=== PATIENT | female | born 1935 | race Caucasian/White ===

== ENCOUNTER → 2018-06-21 10:56 | Outpatient (CLI) | payer MEDICARE, SELFPAY ==
--- NOTE | 2018-06-21 | DI.MG.S_ITS ---
BILATERAL DIGITAL SCREENING MAMMOGRAM 3D/2D WITH CAD: 06/21/2018 CLINICAL: Routine screening. Family history of breast cancer. Comparison is made to exams dated: 05/02/2017 mammogram, 03/23/2016 mammogram, and 02/28/2015 mammogram - [facility]. The tissue of both breasts is heterogeneously dense. This may lower the sensitivity of mammography. Current study was also evaluated with a Computer Aided Detection (CAD) system. There is a focal asymmetry in the right breast at 6 o'clock anterior depth. No other significant masses, calcifications, or other findings are seen in either breast. IMPRESSION: INCOMPLETE: NEEDS ADDITIONAL IMAGING EVALUATION The focal asymmetry in the right breast is indeterminate. Additional views with possible ultrasound are recommended. This exam was interpreted at Station ID: [id number]. NOTE: For mammograms, a report in lay terms will be sent to the patient. Approximately 15% of breast malignancies will not be visualized mammographically. In the management of a palpable breast mass, a negative mammogram must not discourage biopsy of a clinically suspicious lesion. Electronically Signed By: Patience nelson/[email or web address]:06/23/2018 13:12:28 letter sent: Additional Imaging Needed ACR BI-RADS Category 0: Incomplete 3340F
== END ==
PROVIDERS: PCP Physician Assistant; Visit Provider Physician Assistant
DX: Z12.31 Encounter for screening mammogram for malignant neoplasm of breast (principal); Z80.3 Family history of malignant neoplasm of breast
CPT/HCPCS: 77063; 77067

== ENCOUNTER → 2019-06-22 11:40 | Outpatient (CLI) | payer MEDICARE, SELFPAY ==
--- NOTE | 2019-06-22 | DI.MG.S_ITS ---
BILATERAL DIGITAL SCREENING MAMMOGRAM 3D/2D WITH CAD: 06/22/2019 CLINICAL: Routine screening. Family history of breast cancer. Comparison is made to exams dated: 07/17/2018 ultrasound biopsy - [facility], 06/21/2018 mammogram, 05/02/2017 mammogram, and 03/23/2016 mammogram - Loc[facility]. The tissue of both breasts is heterogeneously dense. This may lower the sensitivity of mammography. Current study was also evaluated with a Computer Aided Detection (CAD) system. There is a biopsy clip in the right breast. No significant masses, calcifications, or other findings are seen in either breast. There has been no significant interval change. IMPRESSION: NEGATIVE There is no mammographic evidence of malignancy. A 1 year screening mammogram is recommended. This exam was interpreted at Station ID: [id number]. NOTE: For mammograms, a report in lay terms will be sent to the patient. Approximately 15% of breast malignancies will not be visualized mammographically. In the management of a palpable breast mass, a negative mammogram must not discourage biopsy of a clinically suspicious lesion. Electronically Signed By: Dino de león/danitza:06/22/2019 13:25:38 letter sent: Normal Exam ACR BI-RADS Category 1: Negative 3341F
== END ==
PROVIDERS: PCP Physician Assistant; Visit Provider Internal Medicine
DX: Z12.31 Encounter for screening mammogram for malignant neoplasm of breast (principal); Z80.3 Family history of malignant neoplasm of breast
CPT/HCPCS: 77063; 77067

== ENCOUNTER → 2020-02-26 13:02 | Outpatient (CLI) | payer OTHER, SELFPAY ==
[2020-02-26 14:04] LABS: Appearance Urine UA CLEAR; Bilirubin Urine UA NEGATIVE (NEGATIVE); Color Urine UA YELLOW; Glucose Urine UA NEGATIVE (Negative); Ketones Urine UA NEGATIVE (NEGATIVE); Leukocyte Esterase Urine UA NEGATIVE (NEGATIVE); Nitrite Urine UA NEGATIVE (Negative); Occult Blood Urine UA 1+ (Negative); Protein Urine UA NEGATIVE (Negative); Urobilinogen Urine UA 0.2 E.U./dL (0.2)
[2020-02-26 14:18] LABS: pH Urine UA 5.5 (4.5-8.0)
[2020-02-26 14:21] LABS: Bacteria Urine Occasional (0-1); Culture Indicated Urine Cult Not Indicated; RBC Urine 0-1/HPF (0-5/HPF); WBC Urine 0-1/HPF (0-5/HPF)
[2020-02-26 14:28] LABS: Add Manual Diff / Slide Review NO; Basophils Absolute Auto 100 /uL (0-100); Basophils Percent Auto 1.1 % (0-2); Eosinophils Absolute Auto 100 /uL (0-450); Eosinophils Percent Auto 0.9 % (2-4); Hematocrit 37.6 % (36-46); Hemoglobin 13.1 g/dL (12.0-16.0); Lymphocytes Absolute Auto 1400 /uL (1100-4500); Lymphocytes Percent Auto 23.3 % (25-40); Mean Corpuscular HGB Conc 34.9 % (30-36); Mean Corpuscular Hemoglobin 33.2 PG (26-34); Mean Corpuscular Volume 95.2 fL (80-100); Monocytes Absolute Auto 500 /uL (0-900); Monocytes Percent Auto 8.3 % (3-14); Neutrophils Absolute Auto 4000 /uL (1500-7000); Neutrophils Percent Auto 66.4 % (50-75); Platelet Count 153 X10^3/uL (150-400); Red Blood Cell Count 3.95 X10^6/uL (4.0-5.2); Red Cell Distribution Width 13.5 % (11.6-14.8)
[2020-02-26 14:29] LABS: Alanine Aminotransferase 25 IU/L (<35); Albumin 4.3 g/dL (3.5-5.0); Albumin Globulin Ratio 1.5 (1.0-2.8); Alkaline Phosphatase 59 U/L (38-126); Aspartate Aminotransferase 45 IU/L (14-36); BUN Creatinine Ratio 25.8 (6-22); Bilirubin Total 0.8 mg/dL (0.2-1.3); Blood Urea Nitrogen 24 mg/dL (7-17); Calcium 9.8 mg/dL (8.4-10.2); Carbon Dioxide 27 mmol/L (22-32); Chloride 103 mmol/L (98-107); Estimated Glomerular Filt Rate 57.6 mL/min (>60); Globulin 2.9 g/dL (1.7-4.1); Glucose 93 mg/dL (80-110); HEMOLYSIS 38 (0-50); Potassium 4.5 mmol/L (3.4-5.1); Sodium 137 mmol/L (137-145); Total Protein 7.2 g/dL (6.3-8.2)
[2020-02-26 14:58] LABS: TSH w/ Reflex to FT4 1.29 uIU/mL (0.47-4.68)
[2020-02-26 16:38] LABS: Vitamin D 25 Hydroxy (D3) 39.1 ng/mL (30.0-100.0)
== END ==
PROVIDERS: PCP Physician Assistant; Referring Provider Internal Medicine; Visit Provider Internal Medicine
DX: Z13.820 Encounter for screening for osteoporosis (principal); N18.3 Chronic kidney disease, stage 3 (moderate); E03.9 Hypothyroidism, unspecified; E55.9 Vitamin D deficiency, unspecified; K62.3 Rectal prolapse; R73.9 Hyperglycemia, unspecified
CPT/HCPCS: 36415; 80053; 81001; 82306; 84443; 85025

== ENCOUNTER → 2020-04-01 12:34 | Outpatient (CLI) | payer OTHER, SELFPAY | PROVIDERS: PCP Internal Medicine; Referring Provider Internal Medicine; Visit Provider Internal Medicine | DX: Z13.820 Encounter for screening for osteoporosis (principal); M85.852 Other specified disorders of bone density and structure, left thigh; Z78.0 Asymptomatic menopausal state; Z82.62 Family history of osteoporosis | CPT/HCPCS: 77080 ==

== ENCOUNTER → 2020-05-23 11:14 | Outpatient (CLI) | payer OTHER, SELFPAY ==
[2020-05-23 12:12] LABS: Alanine Aminotransferase 28 IU/L (<35); Aspartate Aminotransferase 39 IU/L (14-36); Gamma Glutamyl Transpeptidase 19 U/L (12-43)
== END ==
PROVIDERS: PCP Internal Medicine; Referring Provider Internal Medicine; Visit Provider Internal Medicine
DX: R74.0 Nonspecific elevation of levels of transaminase and lactic acid dehydrogenase [LDH] (principal)
CPT/HCPCS: 36415; 82977; 84450; 84460

== ENCOUNTER → 2020-06-23 11:04 | Outpatient (CLI) | payer OTHER, SELFPAY ==
--- NOTE | 2020-06-23 | DI.MG.S_ITS ---
BILATERAL DIGITAL SCREENING MAMMOGRAM 3D/2D WITH CAD: 06/23/2020 CLINICAL: Routine screening. Family history of breast cancer. Comparison is made to exams dated: 06/22/2019 mammogram, 06/21/2018 mammogram, and 05/02/2017 mammogram - [facility]. The tissue of both breasts is heterogeneously dense. This may lower the sensitivity of mammography. Current study was also evaluated with a Computer Aided Detection (CAD) system. There is a biopsy clip in the right breast. No significant masses, calcifications, or other findings are seen in either breast. There has been no significant interval change. IMPRESSION: NEGATIVE There is no mammographic evidence of malignancy. A 1 year screening mammogram is recommended. This exam was interpreted at Station ID: [id number]. NOTE: For mammograms, a report in lay terms will be sent to the patient. Approximately 15% of breast malignancies will not be visualized mammographically. In the management of a palpable breast mass, a negative mammogram must not discourage biopsy of a clinically suspicious lesion. Electronically Signed By: Ha winter/danitza:06/23/2020 17:08:42 letter sent: Normal Exam ACR BI-RADS Category 1: Negative 3341F
== END ==
PROVIDERS: PCP Internal Medicine; Referring Provider Internal Medicine; Visit Provider Internal Medicine
DX: Z12.31 Encounter for screening mammogram for malignant neoplasm of breast (principal); Z80.3 Family history of malignant neoplasm of breast
CPT/HCPCS: 77063; 77067

== ENCOUNTER → 2021-06-24 10:45 | Outpatient (CLI) | payer MEDICARE, SELFPAY ==
--- NOTE | 2021-06-24 | DI.MG.S_ITS ---
BILATERAL DIGITAL SCREENING MAMMOGRAM 3D/2D WITH CAD: 06/24/2021 CLINICAL: Routine screening. Family history of breast cancer. Comparison is made to exams dated: 06/23/2020 mammogram, 06/22/2019 mammogram, 06/21/2018 mammogram, 02/28/2015 mammogram, 02/17/2014 mammogram, and 05/02/2017 mammogram - [facility]. The tissue of both breasts is heterogeneously dense. This may lower the sensitivity of mammography. Current study was also evaluated with a Computer Aided Detection (CAD) system. There is a biopsy clip in the right breast. No significant masses, calcifications, or other findings are seen in either breast. There has been no significant interval change. IMPRESSION: NEGATIVE There is no mammographic evidence of malignancy. A 1 year screening mammogram is recommended. This exam was interpreted at Station ID: [id number]. NOTE: For mammograms, a report in lay terms will be sent to the patient. Approximately 15% of breast malignancies will not be visualized mammographically. In the management of a palpable breast mass, a negative mammogram must not discourage biopsy of a clinically suspicious lesion. Electronically Signed By: Dino de león/danitza:06/26/2021 07:55:07 letter sent: Normal Exam ACR BI-RADS Category 1: Negative 3341F
== END ==
PROVIDERS: PCP Internal Medicine; Referring Provider Internal Medicine; Visit Provider Internal Medicine
DX: Z12.31 Encounter for screening mammogram for malignant neoplasm of breast (principal); Z80.3 Family history of malignant neoplasm of breast
CPT/HCPCS: 77063; 77067

== ENCOUNTER → 2022-06-25 10:05 | Outpatient (CLI) | payer OTHER, SELFPAY ==
--- NOTE | 2022-06-25 | DI.MG.S_ITS ---
BILATERAL DIGITAL SCREENING MAMMOGRAM 3D/2D WITH CAD: 06/25/2022 CLINICAL: Routine screening. Family history of breast cancer. Comparison is made to exams dated: 06/24/2021 mammogram, 06/23/2020 mammogram, 06/22/2019 mammogram, 06/21/2018 mammogram, and 05/02/2017 mammogram - [facility]. Both breasts are heterogeneously dense, which may obscure small masses (category c / 51-75% glandular tissue). Current study was also evaluated with a Computer Aided Detection (CAD) system. There is a biopsy clip in the right breast. No significant masses, calcifications, or other findings are seen in either breast. There has been no significant interval change. IMPRESSION: NEGATIVE There is no mammographic evidence of malignancy. A 1 year screening mammogram is recommended. This exam was interpreted at Station ID: [id number]. NOTE: For mammograms, a report in lay terms will be sent to the patient. Approximately 15% of breast malignancies will not be visualized mammographically. In the management of a palpable breast mass, a negative mammogram must not discourage biopsy of a clinically suspicious lesion. Electronically Signed By: Gary benoit/danitza:06/25/2022 11:49:48 letter sent: Normal Exam ACR BI-RADS Category 1: Negative 3341F
== END ==
PROVIDERS: PCP Student in an Organized Health Care Education/Training Program; Referring Provider Student in an Organized Health Care Education/Training Program; Visit Provider Student in an Organized Health Care Education/Training Program
DX: Z12.31 Encounter for screening mammogram for malignant neoplasm of breast (principal); Z80.3 Family history of malignant neoplasm of breast
CPT/HCPCS: 77063; 77067

== ENCOUNTER → 2023-02-25 14:19 | Outpatient (CLI) | payer MEDICARE, SELFPAY ==
[2023-02-25 14:47] LABS: Hematocrit 37.9 % (36-46); Hemoglobin 12.9 g/dL (12.0-16.0); Mean Corpuscular HGB Conc 34.1 % (30-36); Mean Corpuscular Hemoglobin 32.3 PG (26-34); Mean Corpuscular Volume 94.8 fL (80-100); Platelet Count 165 X10^3/uL (150-400); Red Cell Distribution Width 13.5 % (11.6-14.8); White Blood Cell Count 7.6 X10^3/uL (4.5-11.0)
[2023-02-25 15:04] LABS: Alanine Aminotransferase 31 IU/L (<35); Albumin 4.2 g/dL (3.5-5.0); Albumin Globulin Ratio 1.5 (1.0-2.8); Alkaline Phosphatase 52 U/L (38-126); Aspartate Aminotransferase 34 IU/L (14-36); BUN Creatinine Ratio 31.8 (6-22); Bilirubin Total 0.6 mg/dL (0.2-1.3); Blood Urea Nitrogen 35 mg/dL (7-17); Carbon Dioxide 32 mmol/L (22-32); Chloride 101 mmol/L (98-107); Cholesterol 225 mg/dL (140-199); Estimated Glomerular Filt Rate 49 mL/min (>60); Globulin 2.8 g/dL (1.7-4.1); Glucose 95 mg/dL (80-110); HDL Cholesterol 97 mg/dL (40-60); HEMOLYSIS < 15 (0-50); LDL Cholesterol Calculated 102 mg/dL (<100); Potassium 3.9 mmol/L (3.4-5.1); Sodium 139 mmol/L (137-145); Triglycerides 131 mg/dL (35-150)
[2023-02-25 15:08] LABS: Appearance Urine UA CLEAR; Bilirubin Urine UA NEGATIVE (NEGATIVE); Color Urine UA YELLOW; Glucose Urine UA NEGATIVE (Negative); Ketones Urine UA NEGATIVE (NEGATIVE); Leukocyte Esterase Urine UA 1+ (NEGATIVE); Nitrite Urine UA NEGATIVE (Negative); Occult Blood Urine UA 1+ (Negative); Protein Urine UA NEGATIVE (Negative); Urobilinogen Urine UA 0.2 E.U./dL (0.2)
[2023-02-25 15:20] LABS: Bacteria Urine Few (2-10); Culture Indicated Urine Specimen Cultured; RBC Urine 0-1/HPF (0-5/HPF); Squamous Epithelial Cell Urine 1-5 /HPF (0-5/HPF); WBC Urine 5-10/HPF (0-5/HPF)
[2023-02-25 15:32] LABS: TSH w/ Reflex to FT4 1.32 uIU/mL (0.47-4.68)
== END ==
PROVIDERS: PCP Internal Medicine; Referring Provider Internal Medicine; Visit Provider Internal Medicine
DX: E03.9 Hypothyroidism, unspecified (principal); E78.2 Mixed hyperlipidemia; N18.31 Chronic kidney disease, stage 3a; Z87.898 Personal history of other specified conditions
CPT/HCPCS: 36415; 80053; 80061; 81001; 84443; 85027; 87086

== ENCOUNTER 2023-05-06 09:30 | Outpatient (RCR) | payer MEDICARE, SELFPAY ==
--- NOTE | 2023-04-19 15:37 | PT.OIE ---
Current Diagnoses Mixed incontinence (04/19/23) Pelvic and perineal pain (04/19/23) Lower abdominal pain, unspecified (04/19/23) Flatulence (04/19/23) Unspecified urinary incontinence (04/19/23) Past Medical History (Last Updated 02/25/23 @ 13:53 by Michael Euceda MD) Acquired hypothyroidism Actinic keratosis Chicken pox GERD without esophagitis History of urinary incontinence Lost voice (~2017) Measles Mixed hyperlipidemia Osteopenia Scarlet fever (~1945) Stage 3a chronic kidney disease (CKD) Past Surgical History (Last Updated 02/24/23 @ 18:39 by Riana Liz) Anesthesia History of appendectomy (~1998) History of rectal surgery (~2018) Visit Care Team Role Provider Type Michael Euceda MD Attending Provider Physician Family Provider Primary Care Provider Referring Provider Specialty: Internal Medicine Address: [address] [place] [address] Email: [email or web address] Physical Therapy Initial Evaluation PT-OP-A Visit Information Start: 04/04/23 17:54 Freq: Status: Active Protocol: Document 04/19/23 10:37 LRN (Rec: 04/19/23 13:08 LRN [id number]) Out-Patient Physical Therapy Visit Information Visit Information Visit Type Initial Evaluation Visit Start Time 10:38 Visit Stop Time 11:24 Total Visit Minutes 46 Visit Number 1 Evaluation Information Evaluation Date 04/19/23 Precautions Precautions Rectal prolapse. PT-OP-B Current Condition Start: 04/04/23 17:54 Freq: Status: Active Protocol: Document 04/19/23 10:37 LRN (Rec: 04/19/23 13:08 LRN [id number]) Current Condition History of Current Condition Onset Date 2 months ago falling out feeling, 3 yrs wearing thick pad for protection. Current Complaints Leaks when heading to the bathroom , urinates frequently , falling out feel. History of Current Condition Urinary Incontinence, sometimes doesn't make it to the bathroom. Wore thin pad for the past 10 yrs, but in past 2-3 yrs now wears a thicker pad (one) daily. Since young has always had to go to the bathroom more often than most people. Now urinating every hour or every 2 hrs. Feels like her vagina is falling out with walking. Developmental History Developmental History Rectal surgery 06/2020 w/Dr. Valerio in [place] for rectal prolapse. Helped with having normal bowel movement. 2 childbirths, vaginal deliveries w/o complications. Treatment Goals Patient/Caregiver Goals Pt goal: Reduce or eliminate the feeling of PF falling out with walking. Eliminate urinary leakage with an urge. Pt agrees to HEP and PF education. Personal Factors Other Personal Factors That May Effect 88 year old female, s/p rectal Therapy/Recovery surgery for rectocele. Walks , plays golf, stretches in the morning. In winter yoga ex and does wgt lifting. Hurt L knee 2 weeks ago, landing on the knee with a tiny bit of knee pain. PT-OP-C Subjective Start: 04/04/23 17:54 Freq: Status: Active Protocol: Document 04/19/23 10:37 LRN (Rec: 04/19/23 13:08 LRN [id number]) Patient Questionnaires Pelvic Pain and Urgency/Frequency Patient Symptom Scale Pelvic Pain Score .12 PT-OP-I Pelvic Floor Start: 04/04/23 17:54 Freq: Status: Active Protocol: Document 04/19/23 10:37 LRN (Rec: 04/19/23 13:08 LRN [id number]) Pelvic Floor Assessment Urine Urinary Symptoms Urge Sensation,Falling Out Feeling/Heavy Leakage Size Small Leakage Cause Urge Other Leakage Causes Urinates 4 or more times during the night. Voiding Frequency every hour or 2 Nocturia 4+ Pads Used In 24 Hours 1 Urine Pad Type Maxi Pad Bowel Bowel Surgery Yes Bowel Symptoms Fecal Leakage,Uncontrolled Flatulence Other Bowel Symptoms Bowel mvmt with urination Bowel Movement Frequency 1 in AM and with urination. Prolapse Cystocele Grade 2 Rectocele Grade 1 Prolapse Comments Uterus drops to vaginal opening Perineal Descent Bearing Present Contraction Ability Voluntary Contraction Weak Manual Muscle Testing Left 3 Manual Muscle Testing Right 2 Manual Muscle Testing Anterior 0 Manual Muscle Testing Posterior 2 Muscle Endurance (Seconds) 3 Number of Quick Contractions In 10 5 Seconds PT-OP-J Posture/Palpation/Skin Start: 04/04/23 17:54 Freq: Status: Active Protocol: Document 04/19/23 10:37 LRN (Rec: 04/19/23 13:08 LRN [id number]) Posture Evaluation Position Standing Head/C-Spine Posture Forward Head T-Spine Posture Flattened L-Spine Posture Decreased Lordosis,Shifted Left Shoulder Posture (R) Elevated Arm Posture (L) Neutral,(R) Neutral Pelvis Posture Anteriorly Tilted Comments Posture Comments C-curve in upper back with apex on R side, slight anterior pelvic tilt, R foot in ER. PT-OP-K Range of Motion Start: 04/04/23 17:54 Freq: Status: Active Protocol: Document 04/19/23 10:37 LRN (Rec: 04/19/23 13:08 LRN [id number]) Lumbar Spine Range of Motion Lumbar Spine Active Degrees Testing Position Standing Flexion 78 Extension 13 Rotation Left 45 Rotation Right 45 Lateral Flexion Left 8 Lateral Flexion Right 10 ROM Limitations Soft Tissue Tightness Comments Trunk AROM: Flexion is 78 deg ?s with 60 deg?s hip flexion Trunk extension is 13 deg?s with 10 deg?s hip extension. Hip Goniometric Range of Motion Hip Right Passive Testing Position Supine Internal Rotation 20 External Rotation 55 Left Passive Testing Position Supine Internal Rotation 10 External Rotation 50 PT-OP-M Strength Start: 04/19/23 07:54 Freq: Status: Active Protocol: Document 04/19/23 10:37 LRN (Rec: 04/19/23 13:08 LRN [id number]) Trunk Strength Trunk Manual Muscle Testing Core Stabilization Pt demonstrates trunk rotation weakness during MMT of hips. Hip Strength Hip Manual Muscle Testing Right Flexion (L2) 4+ Good+ Comments Strength is 5/5 except as indicated above. Left Internal Rotation 3+ Fair+ Comments Strength is 5/5 except as indicated above. PT-OP-Q Treatments Start: 04/04/23 17:54 Freq: Status: Active Protocol: Document 04/19/23 10:37 LRN (Rec: 04/19/23 13:08 LRN [id number]) Self-Care/Home Management Treatment Education Patient Education Home Exercise Program Other Education Discussed results of evaluation, goals, and plan of care (POC). Pt agreeable to goals and POC. Issued, discussed, & reviewed Bladder Diary for pt to complete over the next 7 days. Explained how to fill out diary and counting of urination times. Activities Self-Care/Home Management Activities Issued & reviewed HEP: Kegel ex's and discussed exercise of Quick Flicks, Long Holds and Aggravators. PT-OP-T Assessment and Plan Start: 04/04/23 17:54 Freq: Status: Active Protocol: Document 04/19/23 10:37 LRN (Rec: 04/19/23 13:08 LRN [id number]) Physical Therapy Assessment Rehab Potential Rehabilitation Potential Good Evaluation Complexity Number of Personal Factors/Comorbidities 1-2 Number of Body Systems Impaired 4 or More Clinical Presentation at Evaluation Evolving Impairments Impairments Activity Tolerance,Posture,ROM ,Strength,Transfers Goals Three Impairment Mixed urinary incontinence Impairment Urinary Urgency sometimes results in urinary leakage. Urinating every 1 to 2 hours. Short Term Goal (STG) Pt will be educated in urinary urge deference technique, normal voiding times and amounts, proper hydration levels, and as needed proper bowel care with BM massage. STG Duration 1 week (04/26/23) Quartz Cutter Goal (LTG) Eliminate urinary leakage with an urge with improvement in bowel care and use of urge deference technique, and decrease voiding frequency to every 2 or more hours between voids. LTG Duration 12 weeks (07/18/23) Two Impairment PF weakness Impairment Feeling of vagina falling out with walking. Short Term Goal (STG) Decreased frequency of sensation of vagina falling out. STG Duration 6 weeks (05/31/23) Quartz Cutter Goal (LTG) Pt will improve PF strength to reduce or eliminate the feeling of vagina falling out with walking. LTG Duration 12 weeks (07/18/23) One Impairment Lacks appropriate self care HEP. Short Term Goal (STG) Pt educated in proper transfers to lessen core abdominal pressure. STG Duration 2 weeks (05/03/23) Longterm Goal (LTG) Pt will be independent in appropriate PF & core (rot)/ hip (L IR) strengthening ex's. LTG Duration 12 weeks (07/18/23) Assessment Summary Assessment Pt is an 88 yo female who presents when in supine with cystocele grade 2, rectocele grade 1 and uterine prolapse with an increase in intra- abdominal pressure, probably due to poor breathing mechanics with functional mobility, posturing and bowel/ bladder voiding. She has PF weakness, decreased hip IR>ER rotational mobility, and trunk mobility. She has good strength but tends to breathhold when actions require exertion. The pt will benefit from skilled physical therapy to improve PF strength, hip mobility and trunk mobility, in order to achieve the above stated goals . Physical Therapy Plan Frequency and Duration Frequency of Treatment 1x/Week Duration of treatment (weeks) 12 Plan of Care Start Date 04/19/23 Plan of Care End Date 05/31/23 Therapeutic Interventions Therapeutic Interventions Home Exercise Program,Manual Therapy,Neuromuscular Re- education,Self-Care/Home Management,Soft Tissue Mobilization,Therapeutic Activities,Therapeutic Exercises Modalities Biofeedback,Electric Stimulation Next Visit Focus/Plan Next Note Type Treatment Note Next Visit Plan Review bladder diary, pt education in proper Kegel without use of substitute muscles, proper deep breathing, and proper breathing with transfer, and body mechanics for proper abdominal pressure system. PF strengthening, core/hip mobility ex's, improve abdominal soft tissue (bladder , uterus) mobility, discuss foods, and water intake, stool types. EMG biofeedback for PF contraction awareness.
--- NOTE | 2023-04-19 15:57 | PT.OIE ---
Current Diagnoses Mixed incontinence (04/19/23) Flatulence (04/19/23) Incomplete defecation (04/19/23) Unspecified urinary incontinence (04/19/23) Past Medical History (Last Updated 02/25/23 @ 13:53 by Michael Euceda MD) Acquired hypothyroidism Actinic keratosis Chicken pox GERD without esophagitis History of urinary incontinence Lost voice (~2018) Measles Mixed hyperlipidemia Osteopenia Scarlet fever (~1945) Stage 3a chronic kidney disease (CKD) Past Surgical History (Last Updated 02/24/23 @ 18:39 by Riana Liz) Anesthesia History of appendectomy (~1998) History of rectal surgery (~2018) Visit Care Team Role Provider Type Michael Euceda MD Attending Provider Physician Family Provider Primary Care Provider Referring Provider Specialty: Internal Medicine Address: [address] [place] [address], [facility] Email: [email or web address] Physical Therapy Initial Evaluation PT-OP-A Visit Information Start: 04/04/23 17:54 Freq: Status: Active Protocol: Document 04/19/23 10:37 LRN (Rec: 04/19/23 13:08 LRN [id number]) Out-Patient Physical Therapy Visit Information Visit Information Visit Type Initial Evaluation Visit Start Time 10:38 Visit Stop Time 11:24 Total Visit Minutes 46 Visit Number 1 Evaluation Information Evaluation Date 04/19/23 Precautions Precautions Rectal prolapse. PT-OP-B Current Condition Start: 04/04/23 17:54 Freq: Status: Active Protocol: Document 04/19/23 10:37 LRN (Rec: 04/19/23 13:08 LRN [id number]) Current Condition History of Current Condition Onset Date 2 months ago falling out feeling, 3 yrs wearing thick pad for protection. Current Complaints Leaks when heading to the bathroom , urinates frequently , falling out feel. History of Current Condition Urinary Incontinence, sometimes doesn't make it to the bathroom. Wore thin pad for the past 10 yrs, but in past 2-3 yrs now wears a thicker pad (one) daily. Since young has always had to go to the bathroom more often than most people. Now urinating every hour or every 2 hrs. Feels like her vagina is falling out with walking. Developmental History Developmental History Rectal surgery 06/2020 w/Dr. Valerio in [place] for rectal prolapse. Helped with having normal bowel movement. 2 childbirths, vaginal deliveries w/o complications. Treatment Goals Patient/Caregiver Goals Pt goal: Reduce or eliminate the feeling of PF falling out with walking. Eliminate urinary leakage with an urge. Pt agrees to HEP and PF education. Personal Factors Other Personal Factors That May Effect 88 year old female, s/p rectal Therapy/Recovery surgery for rectocele. Walks , plays golf, stretches in the morning. In winter yoga ex and does wgt lifting. Hurt L knee 2 weeks ago, landing on the knee with a tiny bit of knee pain. PT-OP-C Subjective Start: 04/04/23 17:54 Freq: Status: Active Protocol: Document 04/19/23 10:37 LRN (Rec: 04/19/23 13:08 LRN [id number]) Patient Questionnaires Pelvic Pain and Urgency/Frequency Patient Symptom Scale Pelvic Pain Score 12 PT-OP-I Pelvic Floor Start: 04/04/23 17:54 Freq: Status: Active Protocol: Document 04/19/23 10:37 LRN (Rec: 04/19/23 13:08 LRN [id number]) Pelvic Floor Assessment Urine Urinary Symptoms Urge Sensation,Falling Out Feeling/Heavy Leakage Size Small Leakage Cause Urge Other Leakage Causes Urinates 4 or more times during the night. Voiding Frequency every hour or 2 Nocturia 4+ Pads Used In 24 Hours 1 Urine Pad Type Maxi Pad Bowel Bowel Surgery Yes Bowel Symptoms Fecal Leakage,Uncontrolled Flatulence Other Bowel Symptoms Bowel mvmt with urination Bowel Movement Frequency 1 in AM and with urination. Prolapse Cystocele Grade 2 Rectocele Grade 1 Prolapse Comments Uterus drops to vaginal opening Perineal Descent Bearing Present Contraction Ability Voluntary Contraction Weak Manual Muscle Testing Left 3 Manual Muscle Testing Right 2 Manual Muscle Testing Anterior 0 Manual Muscle Testing Posterior 2 Muscle Endurance (Seconds) 3 Number of Quick Contractions In 10 5 Seconds PT-OP-J Posture/Palpation/Skin Start: 04/04/23 17:54 Freq: Status: Active Protocol: Document 04/19/23 10:37 LRN (Rec: 04/19/23 13:08 LRN [id number]) Posture Evaluation Position Standing Head/C-Spine Posture Forward Head T-Spine Posture Flattened L-Spine Posture Decreased Lordosis,Shifted Left Shoulder Posture (R) Elevated Arm Posture (L) Neutral,(R) Neutral Pelvis Posture Anteriorly Tilted Comments Posture Comments C-curve in upper back with apex on R side, slight anterior pelvic tilt, R foot in ER. PT-OP-K Range of Motion Start: 04/04/23 17:54 Freq: Status: Active Protocol: Document 04/19/23 10:37 LRN (Rec: 04/19/23 13:08 LRN [id number]) Lumbar Spine Range of Motion Lumbar Spine Active Degrees Testing Position Standing Flexion 78 Extension 13 Rotation Left 45 Rotation Right 45 Lateral Flexion Left 8 Lateral Flexion Right 10 ROM Limitations Soft Tissue Tightness Comments Trunk AROM: Flexion is 78 deg ?s with 60 deg?s hip flexion Trunk extension is 13 deg?s with 10 deg?s hip extension. Hip Goniometric Range of Motion Hip Right Passive Testing Position Supine Internal Rotation 20 External Rotation 55 Left Passive Testing Position Supine Internal Rotation 10 External Rotation 50 PT-OP-M Strength Start: 04/19/23 07:54 Freq: Status: Active Protocol: Document 04/19/23 10:37 LRN (Rec: 04/19/23 13:08 LRN [id number]) Trunk Strength Trunk Manual Muscle Testing Core Stabilization Pt demonstrates trunk rotation weakness during MMT of hips. Hip Strength Hip Manual Muscle Testing Right Flexion (L2) 4+ Good+ Comments Strength is 5/5 except as indicated above. Left Internal Rotation 3+ Fair+ Comments Strength is 5/5 except as indicated above. PT-OP-Q Treatments Start: 04/04/23 17:54 Freq: Status: Active Protocol: Document 04/19/23 10:37 LRN (Rec: 04/19/23 13:08 LRN [id number]) Self-Care/Home Management Treatment Education Patient Education Home Exercise Program Other Education Discussed results of evaluation, goals, and plan of care (POC). Pt agreeable to goals and POC. Issued, discussed, & reviewed Bladder Diary for pt to complete over the next 7 days. Explained how to fill out diary and counting of urination times. Activities Self-Care/Home Management Activities Issued & reviewed HEP: Kimberley ex's and discussed exercise of Quick Flicks, Long Holds and Aggravators. PT-OP-T Assessment and Plan Start: 04/04/23 17:54 Freq: Status: Active Protocol: Document 04/19/23 10:37 LRN (Rec: 04/19/23 13:08 MARIO [id number]) Physical Therapy Assessment Rehab Potential Rehabilitation Potential Good Evaluation Complexity Number of Personal Factors/Comorbidities 1-2 Number of Body Systems Impaired 4 or More Clinical Presentation at Evaluation Evolving Impairments Impairments Activity Tolerance,Posture,ROM ,Strength,Transfers Goals Three Impairment Mixed urinary incontinence Impairment Urinary Urgency sometimes results in urinary leakage. Urinating every 1 to 2 hours. Short Term Goal (STG) Pt will be educated in urinary urge deference technique, normal voiding times and amounts, proper hydration levels, and as needed proper bowel care with BM massage. STG Duration 1 week (04/26/23) Thoracic Surgeon Goal (LTG) Eliminate urinary leakage with an urge with improvement in bowel care and use of urge deference technique, and decrease voiding frequency to every 2 or more hours between voids. LTG Duration 12 weeks (07/18/23) Two Impairment PF weakness Impairment Feeling of vagina falling out with walking. Short Term Goal (STG) Decreased frequency of sensation of vagina falling out. STG Duration 6 weeks (05/31/23) Thoracic Surgeon Goal (LTG) Pt will improve PF strength to reduce or eliminate the feeling of vagina falling out with walking. LTG Duration 12 weeks (07/18/23) One Impairment Lacks appropriate self care HEP. Short Term Goal (STG) Pt educated in proper transfers to lessen core abdominal pressure. STG Duration 2 weeks (05/03/23) Thoracic Surgeon Goal (LTG) Pt will be independent in appropriate PF & core (rot)/ hip (L IR) strengthening ex's. LTG Duration 12 weeks (07/18/23) Assessment Summary Assessment Pt is an 88 yo female who presents when in supine with cystocele grade 2, rectocele grade 1 and uterine prolapse with an increase in intra- abdominal pressure, probably due to poor breathing mechanics with functional mobility, posturing and bowel/ bladder voiding. She has PF weakness, decreased hip IR>ER rotational mobility, and trunk mobility. She has good strength but tends to breathhold when actions require exertion. The pt will benefit from skilled physical therapy to improve PF strength, hip mobility and trunk mobility, in order to achieve the above stated goals . Physical Therapy Plan Frequency and Duration Frequency of Treatment 1x/Week Duration of treatment (weeks) 12 Plan of Care Start Date 04/19/23 Plan of Care End Date 05/31/23 Therapeutic Interventions Therapeutic Interventions Home Exercise Program,Manual Therapy,Neuromuscular Re- education,Self-Care/Home Management,Soft Tissue Mobilization,Therapeutic Activities,Therapeutic Exercises Modalities Biofeedback,Electric Stimulation Next Visit Focus/Plan Next Note Type Treatment Note Next Visit Plan Review bladder diary, pt education in proper Kegel without use of substitute muscles, proper deep breathing, and proper breathing with transfer, and body mechanics for proper abdominal pressure system. PF strengthening, core/hip mobility ex's, improve abdominal soft tissue (bladder , uterus) mobility, discuss foods, and water intake, stool types. EMG biofeedback for PF contraction awareness.
--- NOTE | 2023-04-19 15:57 | PT.OPPOC ---
Physical, Occupational & Speech Therapy At [facility] Current Diagnoses Mixed incontinence (04/19/23) Flatulence (04/19/23) Incomplete defecation (04/19/23) Unspecified urinary incontinence (04/19/23) Visit Care Team Role Provider Type Michael Euceda MD Attending Provider Physician Family Provider Primary Care Provider Referring Provider Specialty: Internal Medicine Address: [address] [place] [address], [facility] Email: [email or web address] Plan Of Care PT-OP-T Assessment and Plan Start: 04/04/23 17:54 Freq: Status: Active Protocol: Document 04/19/23 10:37 LRN (Rec: 04/19/23 13:08 LRN [id number]) Physical Therapy Assessment Rehab Potential Rehabilitation Potential Good Evaluation Complexity Number of Personal Factors/Comorbidities 1-2 Number of Body Systems Impaired 4 or More Clinical Presentation at Evaluation Evolving Impairments Impairments Activity Tolerance,Posture,ROM ,Strength,Transfers Goals Three Impairment Mixed urinary incontinence Impairment Urinary Urgency sometimes results in urinary leakage. Urinating every 1 to 2 hours. Short Term Goal (STG) Pt will be educated in urinary urge deference technique, normal voiding times and amounts, proper hydration levels, and as needed proper bowel care with BM massage. STG Duration 1 week (04/26/23) Instructor Physical Education Goal (LTG) Eliminate urinary leakage with an urge with improvement in bowel care and use of urge deference technique, and decrease voiding frequency to every 2 or more hours between voids. LTG Duration 12 weeks (07/18/23) Two Impairment PF weakness Impairment Feeling of vagina falling out with walking. Short Term Goal (STG) Decreased frequency of sensation of vagina falling out. STG Duration 6 weeks (05/31/23) Instructor Physical Education Goal (LTG) Pt will improve PF strength to reduce or eliminate the feeling of vagina falling out with walking. LTG Duration 12 weeks (07/18/23) One Impairment Lacks appropriate self care HEP. Short Term Goal (STG) Pt educated in proper transfers to lessen core abdominal pressure. STG Duration 2 weeks (05/03/23) Instructor Physical Education Goal (LTG) Pt will be independent in appropriate PF & core (rot)/ hip (L IR) strengthening ex's. LTG Duration 12 weeks (07/18/23) Assessment Summary Assessment Pt is an 88 yo female who presents when in supine with cystocele grade 2, rectocele grade 1 and uterine prolapse with an increase in intra- abdominal pressure, probably due to poor breathing mechanics with functional mobility, posturing and bowel/ bladder voiding. She has PF weakness, decreased hip IR>ER rotational mobility, and trunk mobility. She has good strength but tends to breathhold when actions require exertion. The pt will benefit from skilled physical therapy to improve PF strength, hip mobility and trunk mobility, in order to achieve the above stated goals . Physical Therapy Plan Frequency and Duration Frequency of Treatment 1x/Week Duration of treatment (weeks) 12 Plan of Care Start Date 04/19/23 Plan of Care End Date 05/31/23 Therapeutic Interventions Therapeutic Interventions Home Exercise Program,Manual Therapy,Neuromuscular Re- education,Self-Care/Home Management,Soft Tissue Mobilization,Therapeutic Activities,Therapeutic Exercises Modalities Biofeedback,Electric Stimulation Next Visit Focus/Plan Next Note Type Treatment Note Next Visit Plan Review bladder diary, pt education in proper Kegel without use of substitute muscles, proper deep breathing, and proper breathing with transfer, and body mechanics for proper abdominal pressure system. PF strengthening, core/hip mobility ex's, improve abdominal soft tissue (bladder , uterus) mobility, discuss foods, and water intake, stool types. EMG biofeedback for PF contraction awareness. Plan of Care Dates Plan of Care Start Date 04/19/23 Plan of Care End Date 05/31/23 Electronically Signed by: Patience Reyes, PT 04/19/23 [id number] If you are in agreement with this Plan of Care, please return a signed and dated copy. I have reviewed this Plan of Care and certify that the skilled therapy services above are required to meet the patient?s needs. Physician Signature Date Printed Name and Credentials Clinical Instructor Signature Printed Name and Credentials
--- NOTE | 2023-04-26 08:45 | PT.OTN ---
Current Diagnoses Mixed incontinence (05/06/23) Flatulence (05/06/23) Incomplete defecation (05/06/23) Unspecified urinary incontinence (05/06/23) Physical Therapy Treatment Note PT-OP-A Visit Information Start: 04/04/23 17:54 Freq: Status: Active Protocol: Document 07/11/23 10:18 LRN (Rec: 04/26/23 09:33 LRN [id number]) Out-Patient Physical Therapy Visit Information Visit Information Visit Type Treatment Note Visit Start Time 08:45 Visit Stop Time 09:28 Total Visit Minutes 43 Visit Number 2 Evaluation Information Evaluation Date 04/19/23 Precautions Precautions Rectal prolapse. PT-OP-B Current Condition Start: 04/04/23 17:54 Freq: Status: Active Protocol: Document 04/19/23 10:37 LRN (Rec: 04/19/23 13:08 LRN [id number]) Current Condition History of Current Condition Onset Date 2 months ago falling out feeling, 3 yrs wearing thick pad for protection. Current Complaints Leaks when heading to the bathroom , urinates frequently , falling out feel. History of Current Condition Urinary Incontinence, sometimes doesn't make it to the bathroom. Wore thin pad for the past 10 yrs, but in past 2-3 yrs now wears a thicker pad (one) daily. Since young has always had to go to the bathroom more often than most people. Now urinating every hour or every 2 hrs. Feels like her vagina is falling out with walking. Developmental History Developmental History Rectal surgery 06/2020 w/Dr. Valerio in [place] for rectal prolapse. Helped with having normal bowel movement. 2 childbirths, vaginal deliveries w/o complications. Treatment Goals Patient/Caregiver Goals Pt goal: Reduce or eliminate the feeling of PF falling out with walking. Eliminate urinary leakage with an urge. Pt agrees to HEP and PF education. Personal Factors Other Personal Factors That May Effect 88 year old female, s/p rectal Therapy/Recovery surgery for rectocele. Walks , plays golf, stretches in the morning. In winter yoga ex and does wgt lifting. Hurt L knee 2 weeks ago, landing on the knee with a tiny bit of knee pain. PT-OP-C Subjective Start: 04/04/23 17:54 Freq: Status: Active Protocol: Document 07/11/23 10:18 LRN (Rec: 04/26/23 09:33 LRN [id number]) OP-PT Subjective Patient Comments Patient Comments States her family has been around for the past 3 weeks and will leave in a couple of days. PT-OP-I Pelvic Floor Start: 04/04/23 17:54 Freq: Status: Active Protocol: Document 04/19/23 10:37 LRN (Rec: 04/19/23 13:08 LRN [id number]) Pelvic Floor Assessment Urine Urinary Symptoms Urge Sensation,Falling Out Feeling/Heavy Leakage Size Small Leakage Cause Urge Other Leakage Causes Urinates 4 or more times during the night. Voiding Frequency every hour or 2 Nocturia 4+ Pads Used In 24 Hours 1 Urine Pad Type Maxi Pad Bowel Bowel Surgery Yes Bowel Symptoms Fecal Leakage,Uncontrolled Flatulence Other Bowel Symptoms Bowel mvmt with urination Bowel Movement Frequency 1 in AM and with urination. Prolapse Cystocele Grade 2 Rectocele Grade 1 Prolapse Comments Uterus drops to vaginal opening Perineal Descent Bearing Present Contraction Ability Voluntary Contraction Weak Manual Muscle Testing Left 3 Manual Muscle Testing Right 2 Manual Muscle Testing Anterior 0 Manual Muscle Testing Posterior 2 Muscle Endurance (Seconds) 3 Number of Quick Contractions In 10 5 Seconds PT-OP-J Posture/Palpation/Skin Start: 04/04/23 17:54 Freq: Status: Active Protocol: Document 04/19/23 10:37 LRN (Rec: 04/19/23 13:08 LRN [id number]) Posture Evaluation Position Standing Head/C-Spine Posture Forward Head T-Spine Posture Flattened L-Spine Posture Decreased Lordosis,Shifted Left Shoulder Posture (R) Elevated Arm Posture (L) Neutral,(R) Neutral Pelvis Posture Anteriorly Tilted Comments Posture Comments C-curve in upper back with apex on R side, slight anterior pelvic tilt, R foot in ER. PT-OP-K Range of Motion Start: 04/04/23 17:54 Freq: Status: Active Protocol: Document 04/19/23 10:37 LRN (Rec: 04/19/23 13:08 LRN [id number]) Lumbar Spine Range of Motion Lumbar Spine Active Degrees Testing Position Standing Flexion 78 Extension 13 Rotation Left 45 Rotation Right 45 Lateral Flexion Left 8 Lateral Flexion Right 10 ROM Limitations Soft Tissue Tightness Comments Trunk AROM: Flexion is 78 deg ?s with 60 deg?s hip flexion Trunk extension is 13 deg?s with 10 deg?s hip extension. Hip Goniometric Range of Motion Hip Right Passive Testing Position Supine Internal Rotation 20 External Rotation 55 Left Passive Testing Position Supine Internal Rotation 10 External Rotation 50 PT-OP-M Strength Start: 04/19/23 07:54 Freq: Status: Active Protocol: Document 04/19/23 10:37 LRN (Rec: 04/19/23 13:08 LRN [id number]) Trunk Strength Trunk Manual Muscle Testing Core Stabilization Pt demonstrates trunk rotation weakness during MMT of hips. Hip Strength Hip Manual Muscle Testing Right Flexion (L2) 4+ Good+ Comments Strength is 5/5 except as indicated above. Left Internal Rotation 3+ Fair+ Comments Strength is 5/5 except as indicated above. PT-OP-Q Treatments Start: 04/04/23 17:54 Freq: Status: Active Protocol: Document 07/11/23 10:18 LRN (Rec: 04/26/23 09:33 LRN [id number]) Therapeutic Exercises Supine Exercises Diaphragmatic Breathing Supine Exercise Name Diaphragmatic Breathing training Reps/Minutes 2' Sitting Exercises Urge deference w/sit<>stand Sitting Exercise Name Urge deference w/sit<>stand Reps/Minutes 6' Comments Cuing through each phase of transfer given. Therapeutic Activity Therapeutic Activity Transfer training w/breath/PF Name Transfer training coordinating breathe/PF Reps/Minutes 13' Comments Cuing required for transfers ( stand<>sit<>sup) Self-Care/Home Management Treatment Education Other Education Reviewed Bladder dairy and discussed fluid intake (AM/PM) , bowel movement frequency, & nighttime voiding frequency. Pt lengthy education and discussion in Urinary urge technique. Education and discussion in bladder irritants. Activities Self-Care/Home Management Activities Issued & reviewed Diaphragmatic breathing, urinary urge technique, bed mobility, bladder irritants. PT-OP-T Assessment and Plan Start: 04/04/23 17:54 Freq: Status: Active Protocol: Document 07/11/23 10:18 LRN (Rec: 04/26/23 09:33 LRN [id number]) Physical Therapy Assessment Goals Three Impairment Mixed urinary incontinence Impairment Urinary Urgency sometimes results in urinary leakage. Urinating every 1 to 2 hours. Short Term Goal (STG) Pt will be educated in urinary urge deference technique, normal voiding times and amounts, proper hydration levels, and as needed proper bowel care with BM massage. STG Duration 1 week (04/26/23) progress8/4/ 23(educ void times/amt/hydra BM care/massage) Child And Adolescent Psychologist Goal (LTG) Eliminate urinary leakage with an urge with improvement in bowel care and use of urge deference technique, and decrease voiding frequency to every 2 or more hours between voids. LTG Duration 12 weeks (07/18/23) Two Impairment PF weakness Impairment Feeling of vagina falling out with walking. Short Term Goal (STG) Decreased frequency of sensation of vagina falling out. STG Duration 6 weeks (05/31/23) Mcc Goal (LTG) Pt will improve PF strength to reduce or eliminate the feeling of vagina falling out with walking. LTG Duration 12 weeks (07/18/23) One Impairment Lacks appropriate self care HEP. Short Term Goal (STG) Pt educated in proper transfers to lessen core abdominal pressure. STG Duration 2 weeks (05/03/23) (04/25/23: MET GOAL) Child And Adolescent Psychologist Goal (LTG) Pt will be independent in appropriate PF & core (rot)/ hip (L IR) strengthening ex's. LTG Duration 12 weeks (07/18/23) Assessment Summary Assessment Pt did not track her fluid intake and type with her bladder diary, so will try again after her visitin family leaves. Pt shows good understanding of urinary urge technique for bladder retraining and is very receptive to education information. Physical Therapy Plan Frequency and Duration Frequency of Treatment 1x/Week Duration of treatment (weeks) 12 Plan of Care Start Date 04/19/23 Plan of Care End Date 05/31/23 Next Visit Focus/Plan Next Note Type Treatment Note Next Visit Plan Redo bladder diary when family leaves. Discuss normal voiding times and amounts, proper hydration levels. Education in proper Kegel without use of substitute muscles, Education in proper transfers to lessen core abdominal pressure, proper deep breathing, coordinate breathing with transfers and body mechanics for proper abdominal pressure system. PF strengthening, core/hip mobility ex's, improve abdominal soft tissue (bladder , uterus) mobility, discuss foods, and water intake, stool types. EMG biofeedback for PF contraction awareness.
--- NOTE | 2023-05-06 16:13 | PT.OTN ---
Current Diagnoses Mixed incontinence (05/06/23) Flatulence (05/06/23) Incomplete defecation (05/06/23) Unspecified urinary incontinence (05/06/23) Physical Therapy Treatment Note PT-OP-A Visit Information Start: 04/04/23 17:54 Freq: Status: Active Protocol: Document 05/06/23 09:40 LRN (Rec: 05/06/23 10:33 LRN [id number]) Out-Patient Physical Therapy Visit Information Visit Information Visit Type Treatment Note Visit Start Time 09:40 Visit Stop Time 10:22 Total Visit Minutes 42 Visit Number 3 Evaluation Information Evaluation Date 04/19/23 Precautions Precautions Rectal prolapse. PT-OP-B Current Condition Start: 04/04/23 17:54 Freq: Status: Active Protocol: Document 04/19/23 10:37 LRN (Rec: 04/19/23 13:08 LRN [id number]) Current Condition History of Current Condition Onset Date 2 months ago falling out feeling, 3 yrs wearing thick pad for protection. Current Complaints Leaks when heading to the bathroom , urinates frequently , falling out feel. History of Current Condition Urinary Incontinence, sometimes doesn't make it to the bathroom. Wore thin pad for the past 10 yrs, but in past 2-3 yrs now wears a thicker pad (one) daily. Since young has always had to go to the bathroom more often than most people. Now urinating every hour or every 2 hrs. Feels like her vagina is falling out with walking. Developmental History Developmental History Rectal surgery 06/2020 w/Dr. Valerio in [place] for rectal prolapse. Helped with having normal bowel movement. 2 childbirths, vaginal deliveries w/o complications. Treatment Goals Patient/Caregiver Goals Pt goal: Reduce or eliminate the feeling of PF falling out with walking. Eliminate urinary leakage with an urge. Pt agrees to HEP and PF education. Personal Factors Other Personal Factors That May Effect 88 year old female, s/p rectal Therapy/Recovery surgery for rectocele. Walks , plays golf, stretches in the morning. In winter yoga ex and does wgt lifting. Hurt L knee 2 weeks ago, landing on the knee with a tiny bit of knee pain. PT-OP-C Subjective Start: 04/04/23 17:54 Freq: Status: Active Protocol: Document 05/06/23 09:40 LRN (Rec: 05/06/23 10:33 LRN [id number]) OP-PT Subjective Patient Comments Patient Comments ....... PT-OP-I Pelvic Floor Start: 04/04/23 17:54 Freq: Status: Active Protocol: Document 04/19/23 10:37 LRN (Rec: 04/19/23 13:08 LRN [id number]) Pelvic Floor Assessment Urine Urinary Symptoms Urge Sensation,Falling Out Feeling/Heavy Leakage Size Small Leakage Cause Urge Other Leakage Causes Urinates 4 or more times during the night. Voiding Frequency every hour or 2 Nocturia 4+ Pads Used In 24 Hours 1 Urine Pad Type Maxi Pad Bowel Bowel Surgery Yes Bowel Symptoms Fecal Leakage,Uncontrolled Flatulence Other Bowel Symptoms Bowel mvmt with urination Bowel Movement Frequency 1 in AM and with urination. Prolapse Cystocele Grade 2 Rectocele Grade 1 Prolapse Comments Uterus drops to vaginal opening Perineal Descent Bearing Present Contraction Ability Voluntary Contraction Weak Manual Muscle Testing Left 3 Manual Muscle Testing Right 2 Manual Muscle Testing Anterior 0 Manual Muscle Testing Posterior 2 Muscle Endurance (Seconds) 3 Number of Quick Contractions In 10 5 Seconds PT-OP-J Posture/Palpation/Skin Start: 04/04/23 17:54 Freq: Status: Active Protocol: Document 04/19/23 10:37 LRN (Rec: 04/19/23 13:08 LRN [id number]) Posture Evaluation Position Standing Head/C-Spine Posture Forward Head T-Spine Posture Flattened L-Spine Posture Decreased Lordosis,Shifted Left Shoulder Posture (R) Elevated Arm Posture (L) Neutral,(R) Neutral Pelvis Posture Anteriorly Tilted Comments Posture Comments C-curve in upper back with apex on R side, slight anterior pelvic tilt, R foot in ER. PT-OP-K Range of Motion Start: 04/04/23 17:54 Freq: Status: Active Protocol: Document 04/19/23 10:37 LRN (Rec: 04/19/23 13:08 LRN [id number]) Lumbar Spine Range of Motion Lumbar Spine Active Degrees Testing Position Standing Flexion 78 Extension 13 Rotation Left 45 Rotation Right 45 Lateral Flexion Left 8 Lateral Flexion Right 10 ROM Limitations Soft Tissue Tightness Comments Trunk AROM: Flexion is 78 deg ?s with 60 deg?s hip flexion Trunk extension is 13 deg?s with 10 deg?s hip extension. Hip Goniometric Range of Motion Hip Right Passive Testing Position Supine Internal Rotation 20 External Rotation 55 Left Passive Testing Position Supine Internal Rotation 10 External Rotation 50 PT-OP-M Strength Start: 04/19/23 07:54 Freq: Status: Active Protocol: Document 04/19/23 10:37 LRN (Rec: 04/19/23 13:08 LRN [id number]) Trunk Strength Trunk Manual Muscle Testing Core Stabilization Pt demonstrates trunk rotation weakness during MMT of hips. Hip Strength Hip Manual Muscle Testing Right Flexion (L2) 4+ Good+ Comments Strength is 5/5 except as indicated above. Left Internal Rotation 3+ Fair+ Comments Strength is 5/5 except as indicated above. PT-OP-Q Treatments Start: 04/04/23 17:54 Freq: Status: Active Protocol: Document 05/06/23 09:40 LRN (Rec: 05/06/23 10:33 LRN [id number]) Therapeutic Exercises Supine Exercises LE roll in/out w/DB/PF Supine Exercise Name LE roll in/out w/deep breathing (DB)/PF >< Reps/Minutes 14' Diaphragmatic Breathing Supine Exercise Name Diaphragmatic Breathing training Reps/Minutes 10' Comments Extra time taken for educ/ discussion of purpose of ex & anatomy educ Sitting Exercises LE Roll in/out w/DB/PF Sitting Exercise Name LE roll in/out w/deep breathing (DB)/PF >< Reps/Minutes 8' Comments Cuing for breath/PF ><, aid of visual of belly breathing & LE roll in/out Therapeutic Activity Therapeutic Activity Transfer training w/breath/PF Name Transfer training coordinating breathe/PF Reps/Minutes 4' Comments Cuing required for transfers ( stand<>sit<>sup) Self-Care/Home Management Treatment Education Patient Education Body Mechanics,Home Exercise Program Other Education Discussed at length PF anatomy and relation to bowels, bladder, uterus the effect of intraabdominal pressure increase with transfer, daily activities (voiding) and breathholding. Activities Self-Care/Home Management Activities Issued & reviewed HEP: LE roll in/out to progressively add breath>LE roll in/out> PF contractions. PT-OP-T Assessment and Plan Start: 04/04/23 17:54 Freq: Status: Active Protocol: Document 05/06/23 09:40 LRN (Rec: 05/06/23 10:33 LRN [id number]) Physical Therapy Assessment Goals Three Impairment Mixed urinary incontinence Impairment Urinary Urgency sometimes results in urinary leakage. Urinating every 1 to 2 hours. Short Term Goal (STG) Pt will be educated in urinary urge deference technique, normal voiding times and amounts, proper hydration levels, and as needed proper bowel care with BM massage. STG Duration 1 week (04/26/23) progress(educ void times/amt/hydra BM care/massage) [facility]ci Goal (LTG) Eliminate urinary leakage with an urge with improvement in bowel care and use of urge deference technique, and decrease voiding frequency to every 2 or more hours between voids. LTG Duration 12 weeks (07/18/23) Two Impairment PF weakness Impairment Feeling of vagina falling out with walking. Short Term Goal (STG) Decreased frequency of sensation of vagina falling out. STG Duration 6 weeks (05/31/23) Laborer Hoisting Goal (LTG) Pt will improve PF strength to reduce or eliminate the feeling of vagina falling out with walking. LTG Duration 12 weeks (07/18/23) One Impairment Lacks appropriate self care HEP. Short Term Goal (STG) Pt educated in proper transfers to lessen core abdominal pressure. STG Duration 2 weeks (05/03/23) (04/25/23: MET GOAL) [facility]ci Goal (LTG) Pt will be independent in appropriate PF & core (rot)/ hip (L IR) strengthening ex's. LTG Duration 12 weeks (07/18/23) Assessment Summary Assessment Cystocele grade 2, rectocele grade 1 and uterine drop, and notable incr intra abdominal pressure in sup w/PF ><. Pt appeared to gain a much greater understanding of minimizing her core abdminal pressure and was able to improve coordination of DB w/ abdominal mvmt; assist of LE mvmt was needed in supine but not in sitting. Sitting coordination much better than supine. Physical Therapy Plan Frequency and Duration Frequency of Treatment 1x/Week Duration of treatment (weeks) 12 Plan of Care Start Date 04/19/23 Plan of Care End Date 05/31/23 Next Visit Focus/Plan Next Note Type Treatment Note Next Visit Plan Review bladder diary, proper Kegel without use of substitute muscles, proper transfers to lessen core abdominal pressure, proper deep breathing, coordination of breathing with transfers. Discuss normal voiding times and amounts, proper hydration levels and body mechanics to lessen core abdominal pressure . PF strengthening, core/hip mobility ex's, improve abdominal soft tissue (bladder , uterus) mobility, discuss foods, and water intake, stool types. EMG biofeedback for PF contraction awareness.
--- NOTE | 2023-07-11 10:26 | PT.OPDS ---
Current Diagnoses Mixed incontinence (05/06/23) Flatulence (05/06/23) Incomplete defecation (05/06/23) Unspecified urinary incontinence (05/06/23) Visit Care Team Role Provider Type Michael Euceda MD Attending Provider Physician Family Provider Primary Care Provider Referring Provider Specialty: Internal Medicine Address: [address] [place] [address], [facility] Email: [email or web address] Visit Number Visit Number 3 Discharge Summary PT-OP-B Current Condition Start: 04/04/23 17:54 Freq: Status: Active Protocol: Document 04/19/23 10:37 LRN (Rec: 04/19/23 13:08 LRN [id number]) Current Condition History of Current Condition Onset Date 2 months ago falling out feeling, 3 yrs wearing thick pad for protection. Current Complaints Leaks when heading to the bathroom , urinates frequently , falling out feel. History of Current Condition Urinary Incontinence, sometimes doesn't make it to the bathroom. Wore thin pad for the past 10 yrs, but in past 2-3 yrs now wears a thicker pad (one) daily. Since young has always had to go to the bathroom more often than most people. Now urinating every hour or every 2 hrs. Feels like her vagina is falling out with walking. Developmental History Developmental History Rectal surgery 06/2020 w/Dr. Valerio in [place] for rectal prolapse. Helped with having normal bowel movement. 2 childbirths, vaginal deliveries w/o complications. Treatment Goals Patient/Caregiver Goals Pt goal: Reduce or eliminate the feeling of PF falling out with walking. Eliminate urinary leakage with an urge. Pt agrees to HEP and PF education. Personal Factors Other Personal Factors That May Effect 88 year old female, s/p rectal Therapy/Recovery surgery for rectocele. Walks , plays golf, stretches in the morning. In winter yoga ex and does wgt lifting. Hurt L knee 2 weeks ago, landing on the knee with a tiny bit of knee pain. PT-OP-C Subjective Start: 04/04/23 17:54 Freq: Status: Active Protocol: Document 05/06/23 09:40 LRN (Rec: 05/06/23 10:33 LRN [id number]) OP-PT Subjective Patient Comments Patient Comments ....... PT-OP-I Pelvic Floor Start: 04/04/23 17:54 Freq: Status: Active Protocol: Document 04/19/23 10:37 LRN (Rec: 04/19/23 13:08 LRN [id number]) Pelvic Floor Assessment Urine Urinary Symptoms Urge Sensation,Falling Out Feeling/Heavy Leakage Size Small Leakage Cause Urge Other Leakage Causes Urinates 4 or more times during the night. Voiding Frequency every hour or 2 Nocturia 4+ Pads Used In 24 Hours 1 Urine Pad Type Maxi Pad Bowel Bowel Surgery Yes Bowel Symptoms Fecal Leakage,Uncontrolled Flatulence Other Bowel Symptoms Bowel mvmt with urination Bowel Movement Frequency 1 in AM and with urination. Prolapse Cystocele Grade 2 Rectocele Grade 1 Prolapse Comments Uterus drops to vaginal opening Perineal Descent Bearing Present Contraction Ability Voluntary Contraction Weak Manual Muscle Testing Left 3 Manual Muscle Testing Right 2 Manual Muscle Testing Anterior 0 Manual Muscle Testing Posterior 2 Muscle Endurance (Seconds) 3 Number of Quick Contractions In 10 5 Seconds PT-OP-J Posture/Palpation/Skin Start: 04/04/23 17:54 Freq: Status: Active Protocol: Document 04/19/23 10:37 LRN (Rec: 04/19/23 13:08 LRN [id number]) Posture Evaluation Position Standing Head/C-Spine Posture Forward Head T-Spine Posture Flattened L-Spine Posture Decreased Lordosis,Shifted Left Shoulder Posture (R) Elevated Arm Posture (L) Neutral,(R) Neutral Pelvis Posture Anteriorly Tilted Comments Posture Comments C-curve in upper back with apex on R side, slight anterior pelvic tilt, R foot in ER. PT-OP-K Range of Motion Start: 04/04/23 17:54 Freq: Status: Active Protocol: Document 04/19/23 10:37 LRN (Rec: 04/19/23 13:08 LRN [id number]) Lumbar Spine Range of Motion Lumbar Spine Active Degrees Testing Position Standing Flexion 78 Extension 13 Rotation Left 45 Rotation Right 45 Lateral Flexion Left 8 Lateral Flexion Right 10 ROM Limitations Soft Tissue Tightness Comments Trunk AROM: Flexion is 78 deg ?s with 60 deg?s hip flexion Trunk extension is 13 deg?s with 10 deg?s hip extension. Hip Goniometric Range of Motion Hip Right Passive Testing Position Supine Internal Rotation 20 External Rotation 55 Left Passive Testing Position Supine Internal Rotation 10 External Rotation 50 PT-OP-M Strength Start: 04/19/23 07:54 Freq: Status: Active Protocol: Document 04/19/23 10:37 LRN (Rec: 04/19/23 13:08 LRN [id number]) Trunk Strength Trunk Manual Muscle Testing Core Stabilization Pt demonstrates trunk rotation weakness during MMT of hips. Hip Strength Hip Manual Muscle Testing Right Flexion (L2) 4+ Good+ Comments Strength is 5/5 except as indicated above. Left Internal Rotation 3+ Fair+ Comments Strength is 5/5 except as indicated above. PT-OP-T Assessment and Plan Start: 04/04/23 17:54 Freq: Status: Active Protocol: Document 07/11/23 10:23 LRN (Rec: 07/11/23 10:26 LRN [id number]) Physical Therapy Assessment Goals Three Impairment Mixed urinary incontinence Impairment Urinary Urgency sometimes results in urinary leakage. Urinating every 1 to 2 hours. Short Term Goal (STG) Pt will be educated in urinary urge deference technique, normal voiding times and amounts, proper hydration levels, and as needed proper bowel care with BM massage. STG Duration 1 week (04/26/23) progress(educ void times/amt/hydra BM care/massage) Child And Family Services Worker Goal (LTG) Eliminate urinary leakage with an urge with improvement in bowel care and use of urge deference technique, and decrease voiding frequency to every 2 or more hours between voids. LTG Duration 12 weeks (07/18/23) Two Impairment PF weakness Impairment Feeling of vagina falling out with walking. Short Term Goal (STG) Decreased frequency of sensation of vagina falling out. STG Duration 6 weeks (05/31/23) Usp Goal (LTG) Pt will improve PF strength to reduce or eliminate the feeling of vagina falling out with walking. LTG Duration 12 weeks (07/18/23) One Impairment Lacks appropriate self care HEP. Short Term Goal (STG) Pt educated in proper transfers to lessen core abdominal pressure. STG Duration 2 weeks (05/03/23) (04/25/23: MET GOAL) Usp Goal (LTG) Pt will be independent in appropriate PF & core (rot)/ hip (L IR) strengthening ex's. LTG Duration 12 weeks (07/18/23) Assessment Summary Assessment The pt has attended 2 treatment visits and was last seen 05/06/23. She has cancelled over 1/2 her appt visits and is now beyond her plan of care. The pt is being discharged due to lack of attendance. Pt goals were not met. Physical Therapy Plan Discharge Physical Therapy Discharge Reasons No Longer Attending PT Discharge Comments Thank you for your referral.
== END 2023-07-15 14:17 | disposition home or self-care (01) ==
LOC: PHYS 09:30
PROVIDERS: Family Provider Internal Medicine; PCP Internal Medicine; Referring Provider Internal Medicine; Visit Provider Internal Medicine
DX: N39.46 Mixed incontinence (principal); R14.3 Flatulence; R15.0 Incomplete defecation
CPT/HCPCS: 97110; 97162; 97530; 97535

== ENCOUNTER → 2023-06-28 13:12 | Outpatient (CLI) | payer MEDICARE, SELFPAY ==
--- NOTE | 2023-06-28 | DI.MG.S_ITS ---
BILATERAL DIGITAL SCREENING MAMMOGRAM 3D/2D WITH CAD: 06/28/2023 CLINICAL: Routine screening. Family history of breast cancer. Comparison is made to exams dated: 06/25/2022 mammogram, 06/24/2021 mammogram, and 06/23/2020 mammogram - [facility]. Both breasts are heterogeneously dense, which may obscure small masses (category c / 51-75% glandular tissue). Current study was also evaluated with a Computer Aided Detection (CAD) system. There is a biopsy clip in the right breast. No significant masses, calcifications, or other findings are seen in either breast. There has been no significant interval change. IMPRESSION: NEGATIVE There is no mammographic evidence of malignancy. A 1 year screening mammogram is recommended. This exam was interpreted at Station ID: [id number]. NOTE: For mammograms, a report in lay terms will be sent to the patient. Approximately 15% of breast malignancies will not be visualized mammographically. In the management of a palpable breast mass, a negative mammogram must not discourage biopsy of a clinically suspicious lesion. Electronically Signed By: Dino de león/danitza:06/28/2023 18:47:17 letter sent: Normal Exam ACR BI-RADS Category 1: Negative [id number]
== END ==
PROVIDERS: Family Provider Internal Medicine; PCP Internal Medicine; Referring Provider Internal Medicine; Visit Provider Internal Medicine
DX: Z12.31 Encounter for screening mammogram for malignant neoplasm of breast (principal); Z80.3 Family history of malignant neoplasm of breast
CPT/HCPCS: 77063; 77067